=== PATIENT | male | born 1990 | race Caucasian/White ===

== ENCOUNTER 2023-05-20 15:59 | Emergency (ER) | payer MEDICARE ==
[2023-05-20] MEDS ORDERED: Ondansetron ODT 4 MG TAB ONE (17:08)
[2023-05-20] MEDS ORDERED: Meclizine HCl 25 MG TAB ONE (17:08)
[2023-05-20] MEDS ORDERED: Ibuprofen 200 MG TAB ONE (17:08)
== END 2023-05-20 17:26 | disposition home or self-care (01) ==
LOC: MADERS 15:59
DX: S06.0X0A Concussion without loss of consciousness, initial encounter (principal); W22.8XXA Striking against or struck by other objects, initial encounter
CPT/HCPCS: 70450; Q0162

== ENCOUNTER 2023-08-09 19:13 | Emergency (ER) | payer MEDICARE ==
[2023-08-09 19:46] LABS: Band 5 % (5-11); Hematocrit 50.6 % (42.0-52.0); Hemoglobin 16.6 g/dL (14.0-18.0); Lymphocytes 16 % (21-51); MDiff Complete? YES; Mean Corpuscular HGB CONC 32.8 g/dL (32.0-36.0); Mean Corpuscular Hemoglobin 28.9 pg (27.0-31.0); Mean Corpuscular Volume 88.2 fl (78.0-98.0); Mean Platelet Volume 9.5 fL (7.4-10.4); Monocytes 1 % (0-10); Neutrophil 78 % (42-75); Platelet Adequacy Comment Appears Adequate; Platelet Count 174 10x3/uL (130-400); RBC Distribution Width 11.9 % (11.5-14.5); Red Blood Cell (RBC) Count 5.73 mill/uL (4.70-6.10); White Blood Cell (WBC) Count 7.9 10x3/uL (4.8-10.8)
[2023-08-09 19:51] LABS: ALT (SGPT) 21 U/L (8-55); AST (SGOT) 29 U/L (5-34); Albumin 5.1 g/dL (3.5-5.0); Alkaline Phosphatase 96 U/L (40-110); Anion Gap 19 mmol/L (10-20); BUN (Urea Nitrogen) 16 mg/dL (8.9-20.6); Bilirubin, Total 1.8 mg/dL (0.2-1.2); Calc. Creatinine Clearance 0 mL/min (70-130); Calcium 10.2 mg/dL (7.8-10.44); Carbon Dioxide 22 mmol/L (22-29); Chloride 104 mmol/L (98-107); Estimated GFR 97; Globulin 2.4 g/dL (2.4-3.5); Glucose 92 mg/dL (70-105); Potassium 4.2 mmol/L (3.5-5.1); Protein, Total 7.5 g/dL (6.0-8.3); Sodium 141 mmol/L (136-145)
[2023-08-09 19:56] LABS: Troponin I Less than 0.010 ng/mL (< 0.028)
[2023-08-09] MEDS ORDERED: fentaNYL 50 mcg/mL 1 mL Vial ONE (20:59)
[2023-08-09] MEDS ORDERED: Bacitracin 1 PK ONE (23:46)
== END 2023-08-09 22:40 | disposition short-term general hospital (02) ==
LOC: MADERS 19:13
DX: R07.9 Chest pain, unspecified (principal); I27.20 Pulmonary hypertension, unspecified; Q21.3 Tetralogy of Fallot
CPT/HCPCS: 71045; 71275; 74174; 80053; 83880; 84484; 85025; 85379; 93005; 96374; J3010

== ENCOUNTER 2024-06-15 13:23 | Emergency (ER) | payer MEDICARE | END 2024-06-15 14:46 | disposition home or self-care (01) | LOC: MADERS 13:23 | DX: M79.601 Pain in right arm (principal) | CPT/HCPCS: 99283 ==

== ENCOUNTER 2024-07-07 11:53 | Emergency (ER) | payer MEDICARE ==
[2024-07-07] MEDS ORDERED: Albuterol 200 PUFF (6.7GM INHALER) ONE (13:01)
[2024-07-07] MEDS ORDERED: Lidocaine 4% Patch ONE (13:02)
[2024-07-07] MEDS ORDERED: Benzonatate 100 MG CAP ONE (13:02)
== END 2024-07-07 14:00 | disposition home or self-care (01) ==
LOC: MADERS 11:53
DX: J18.9 Pneumonia, unspecified organism (principal)
CPT/HCPCS: 71046; 87400; 87426

== ENCOUNTER 2025-05-10 06:47 | Emergency (ER) | payer MEDICARE ==
[2025-05-10] MEDS ORDERED: diphenhydrAMINE 25 MG CAP ONE (07:25)
[2025-05-10] MEDS ORDERED: Famotidine 20 MG TAB ONE (07:25)
[2025-05-10] MEDS ORDERED: predniSONE 10 MG TAB ONE (07:25)
[2025-05-10] MEDS ORDERED: predniSONE 20 MG TAB ONE (07:25)
== END 2025-05-10 07:35 | disposition home or self-care (01) ==
LOC: MADERS 06:47
DX: L25.9 Unspecified contact dermatitis, unspecified cause (principal); F17.200 Nicotine dependence, unspecified, uncomplicated
CPT/HCPCS: 99282; J7512